=== PATIENT | male | born 1985 | race Caucasian/White ===

== ENCOUNTER 2022-05-14 09:18 | Outpatient (CLI) | payer BC, SELFPAY ==
--- NOTE | 2022-05-14 09:55 | ECG_ITS ---
Measurements Intervals [place] Rate: 66 P: 64 NH: 157 QRS: 84 QRSD: 104 T: 56 QT: 373 QTc: 392 Interpretive Statements SINUS RHYTHM WITH SINUS ARRHYTHMIA BASELINE WANDER- AVR, AVL, AVF NORMAL ECG NO PREVIOUS ECG AVAILABLE FOR COMPARISON Electronically Signed On 05-14-2022 10:19:07 PIT LABORER by Jimy Rodriguez D.O.
== END 2022-05-14 09:19 | disposition home or self-care (01) ==
LOC: ANHCARD 09:21
PROVIDERS: PCP Family Medicine; Visit Provider Physician Assistant
DX: I49.8 Other specified cardiac arrhythmias (principal)
CPT/HCPCS: 93005

== ENCOUNTER 2024-03-25 11:39 | Outpatient (CLI) | payer BC, SELFPAY ==
--- NOTE | ~2024-03-25 | XR_ITS ---
Clinical Indication: Chest pain PA and lateral views of the chest: Comparison: 05/17/2011 Findings: The lungs are clear, without evidence of focal consolidation or pleural effusion. Possible COPD. Cardiomediastinal silhouette is within normal limits. Bones and soft tissues are unremarkable. Impression: Clear lungs. Possible COPD. Reviewed, dictated and finalized at location . ERTING SUPERVISOR Impression: Clear lungs. Possible COPD.
== END 2024-03-25 11:40 | disposition home or self-care (01) ==
LOC: ANHIMG 11:41
PROVIDERS: PCP Family Medicine; Visit Provider Family Medicine
DX: R07.9 Chest pain, unspecified (principal)
CPT/HCPCS: 71046

== ENCOUNTER 2024-04-14 09:36 | Outpatient (CLI) | payer BC, SELFPAY ==
--- NOTE | 2024-04-14 09:59 | ECG_ITS ---
Test Date: 2024-04-14 10:16:43 Measurements Intervals [place] Rate: 48 P: 35 CO: 155 QRS: 81 QRSD: 113 T: 38 QT: 403 QTc: 361 Interpretive Statements SINUS BRADYCARDIA WITH SINUS ARRHYTHMIA POSSIBLE RIGHT VENTRICULAR CONDUCTION DELAY [RSR (QR) IN V1/V2] ST ELEVATION, CONSIDER EARLY REPOLARIZATION VERSUS INJURY PATTERN ABNORMAL ECG No previous ECG available for comparison Electronically Signed On 04-14-2024 11:02:36 NEUROPSYCHOLOGY DIRECTOR by Ghulam Lynn M.D.
[2024-04-14 10:39] LABS: Basophils Percent Auto 0.3 % (0.2-1.2); Eosinophils Absolute Auto 0.1 K/mm3 (0-0.3); Eosinophils Percent Auto 0.8 % (0-4.4); Hematocrit 48.1 % (42.0-52.0); Hemoglobin 15.8 g/dL (14.0-18.0); Immature Granulocyte Absolute 0.01 K/mm3 (0.00-0.031); Immature Granulocyte Percent A 0.2 % (0-0.5); Lymphocytes Absolute Auto 2.08 K/mm3 (0.9-3.2); Lymphocytes Percent Auto 34.7 % (18.3-44.2); Mean Corpuscular HGB Conc 32.8 g/dl (32-36); Mean Corpuscular Hemoglobin 30.3 pg (26-34); Mean Corpuscular Volume 92.3 fl (80-100); Mean Platelet Volume 7.7 fl (7.4-10.4); Monocytes Absolute Auto 0.5 K/mm3 (0.1-0.6); Neutrophils Absolute Auto 3.3 K/mm3 (1.3-6.7); Platelet Count Result 347 k/mm3 (150-375); Red Blood Count 5.21 M/mm3 (4.6-6.20); Red Cell Distribution Width 12.2 % (11.5-14.5)
[2024-04-14 10:52] LABS: Alanine Aminotransferase 17 U/L (6-50); Albumin Level 4.7 g/dL (3.5-5.1); Alkaline Phosphatase 60 U/L (38-126); Anion Gap 4 mmol/L (4-12); Aspartate Amino Transferase 32 U/L (17-59); Bilirubin,Total 0.6 mg/dL (0.2-1.3); Blood Urea Nitrogen 12 mg/dL (9-20); Calcium 9.4 mg/dL (8.4-10.2); Carbon Dioxide 32 mmol/L (22-30); Chloride 103 mmol/L (98-107); Estimated Glomerular Filt Rate > 60; Glucose 89 mg/dL (65-110); Potassium 4.2 mmol/L (3.4-5.0); Sodium 139 mmol/L (137-145)
== END 2024-04-14 09:37 | disposition home or self-care (01) ==
PROVIDERS: PCP Family Medicine; Visit Provider Family Medicine
DX: R00.2 Palpitations (principal); E11.9 Type 2 diabetes mellitus without complications; R06.00 Dyspnea, unspecified; R94.31 Abnormal electrocardiogram [ECG] [EKG]
CPT/HCPCS: 36415; 80053; 84443; 85025; 93005

== ENCOUNTER 2024-04-21 12:20 | Outpatient (CLI) | payer BC, SELFPAY ==
--- NOTE | 2024-04-26 18:47 | WPDPFTINT ---
PFT Procedure Performed PFT Procedure Performed Spirometry with Pre/Post Bronchodilator Plethysmography (Lung Vol) Diffusing Cap (DLCO) Flow Vol Loop PFT Interpretation DOS: 04/21/2024 REQUESTING: Ifeoma Sanon MD REASON FOR TESTING: Dyspnea PULMONARY FUNCTION TESTS Results are reliable and reproducible. Repeatability of spirometry FEV1 maneuver pre and post bronchodilator is Grade A. Spirometry: The pre-bronchodilator FEV1 is 4.64 L, 91%. The pre-bronchodilator FVC is 5.93 L, 92%. The FEV1/FVC ratio is 78%. After bronchodilator, the FEV1 is 4.99 L, 98%, +8%. The post-bronchodilator FVC is 6.29 L, 98%, +6%. The FEV1/FVC ratio is 79%. Lung volumes: The total lung capacity is 9.27 L, 114%. The residual volume is 2.85 L, 133%. The RV/TLC is 31%. Airway resistance is increased. Diffusion: DLCO is 35, 98%. The DLCO/VA is 4.75, 104%. Flow volume loop: The flow volume loop is normal. IMPRESSION: This study shows normal spirometry with a modest but insignificant response to bronchodilator administration, normal lung volumes and normal diffusion. Lack of response to bronchodilator should not preclude use if clinically indicated. There are no prior studies to compare. Sonja Hanley MD
== END 2024-04-21 12:21 | disposition home or self-care (01) ==
PROVIDERS: PCP Family Medicine; Visit Provider Family Medicine
DX: R06.00 Dyspnea, unspecified (principal)
CPT/HCPCS: 94060; 94726; 94729